=== PATIENT | male | born 1990 | race Caucasian/White ===

== ENCOUNTER 2021-06-14 20:47 | Emergency (ER) | payer OTHER, SELFPAY ==
--- NOTE | ~2021-06-14 | XR_ITS ---
EXAMINATION: XR chest 2V CLINICAL INFORMATION: Chest pain COMPARISON: No prior chest x-ray available in our system for comparison at the time of this dictation. TECHNIQUE: XR chest 2V Lungs and Ghada: Both lungs are clear. Pleura: Normal. Costophrenic angles are sharp. No pneumothorax. Heart: The heart is normal in size. Mediastinum: The mediastinum is within normal limits.. Bones: Skeletal structures included are normal for patient's age. XR/XR chest 2V IMPRESSION: Normal chest x-ray
[2021-06-14 21:41] VITALS: BP 147/97; PULSE 113; RESP 18; TEMP 37.2; O2SAT 96; BMI 24.0
--- NOTE | 2021-06-14 22:37 | ECG_ITS ---
Test Reason : CHEST PAIN Blood Pressure : / mmHG Vent. Rate : 087 BPM Atrial Rate : 087 BPM P-R Int : 140 ms QRS Dur : 086 ms QT Int : 362 ms P-R-T Axes : 074 033 063 degrees QTc Int : 435 ms Normal sinus rhythm RSR' or QR pattern in V1 suggests right ventricular conduction delay peaked t-waves in Anterior leads Borderline ECG No previous ECGs available Referred By: Kwabena Choi Electronically Signed By:SERGE STEPHENSON MD
--- NOTE | 2021-06-14 22:44 | ED_ITS ---
HPI - Chest Pain General Chief Complaint: Chest Pain Stated Complaint: Chest pain Time Seen by Provider: 06/14/21 22:35 Source: patient Limitations: no limitations History of Present Illness HPI narrative: This is a 30-year-old male whose mother had a heart attack that after Halloween, who notes that he has had fleeting chest pain only lasting second or 2 at a time off and on for months, but that more recently for the last 3 days or so the pain seems more frequent and lasting longer, and also seems to go around to left posterior chest more than it did before. Patient has not noted any pain per se with exertion. He did have some nausea last night associated with chest pain. Denies any shortness of breath. Pain is not worse with taking a deep breath except when the pain is more acute, then he does noted more when he takes a deep breath. He denies any pain or swelling in his legs. He denies any unusual sweats. He denies any history of hypertension, high cholesterol, diabetes. He does have coronary artery disease in his family, his mother, aunt, and grandfather on his mother's side. The patient is a former tobacco smoker. He does use occasional marijuana. Related Data Allergies Allergy/AdvReac Type Severity Reaction Status Date / Time No Known Allergies Allergy Verified 06/14/21 22:37 Review of Systems Review of Systems: Yes all other systems are reviewed and are negative Constitutional: Constitutional: Reports as per HPI and Denies fever(s) Eyes: Eyes: Reports as per HPI and Reports no additional eye complaints ENT: Reports system reviewed and no additional complaints, except as documented, Reports as per HPI, Denies nasal congestion, Denies nasal discharge and Denies sore throat Cardiovascular: Cardiovascular: Reports as per HPI, Reports chest pain and Denies dyspnea Respiratory: Respiratory: Reports as per HPI, Denies cough and Denies dyspnea Gastrointestinal: Gastrointestinal: Reports as per HPI, Denies abdominal pain, Denies diarrhea, Reports nausea and Denies vomiting Genitourinary: Genitourinary: Reports as per HPI, Denies hematuria, Denies dysuria and Denies urinary frequency Musculoskeletal: Musculoskeletal: Reports no additional musculoskeletal complaints and Denies numbness Integumentary/Breasts: Skin/Breast: Reports as per HPI and Denies rash Neurologic: Reports as per HPI, Denies focal weakness, Denies numbness and Denies Sensory deficit (Neuro) Psychiatric: Psychiatric: Reports no additional psychiatric complaints and Reports as per HPI Endocrine: Endocrine: Reports no additional endocrine complaints and Reports as per HPI Hematologic/Lymphatic: Hematologic/Lymphatic: Reports no additional hematologic/lymphatic complaints, Reports as per HPI and Reports other (No peripheral edema) [facility] Social History Social History Advance Directives: No Advance Directives Information Provided: No Physical Exam Vital Signs: Vital Signs: Last Vital Signs Temp 98.9 F 06/14/21 21:41 Pulse 91 06/15/21 00:16 Resp 18 06/15/21 00:16 BP 123/74 06/15/21 00:16 Pulse Ox 96 06/14/21 21:41 Body Mass Index 24.0 Const: General: cooperative, no acute distress and alert Orientation/consciousness: patient oriented x3 HENMT: Head: Yes normal to inspection Eyes: General: appearance normal, both eyes and all related structures Eyelids: Yes eyelids normal Conjunctivae: conjunctivae normal Pupils: Equal, round and reactive pupils present Neck: Neck: Yes normal visual inspection and Yes supple Chest: Chest palpation & inspection: normal inspection of the chest Resp: Effort & Inspection: normal respiratory effort Auscultation: clear to auscultation bilaterally Cardio: Rate: regular rate Rhythm: regular rhythm Heart sounds: S1 no rmal heart sound present, S2 normal heart sound present, no gallops, no murmurs and no rubs GI: Palpation (GI): Soft to palpation, nontender and Other GI palpation findings present (Non-distended) Auscultation: normal bowel sounds Skin: General skin exam: no rashes or lesions noted Neuro: General: patient oriented x3, no focal motor deficits and CN's II-XI intact bilaterally Cranial nerves: Yes Equal, round and reactive pupils present Cognition (Neuro): normal cognition Motor exam (neuro): 5/5 motor strength present throughout Sensory Exam: No Sensory deficit (Neuro) Extrem: General: Yes normal to inspection and Yes no pedal edema Psych: Appearance: grossly normal Affect: normal affect MDM - Chest Pain MDM Narrative Medical decision making narrative: Patient was sharp fleeting left-sided chest pain in his left lateral chest, present for some time, but more frequent recently and also with a new element of left upper back pain in the same area. The patient is concerned about his heart given his family history in his mother's recent heart attack. Patient is young and has no other significant risk factors. EKG normal. Troponin negative. Chest x-ray normal. No evidence of pneumothorax, pericarditis, pleural effusion, pneumonia. Doubt valvular disease. Patient does do a fair amount of lifting at work, possible musculoskeletal pain or costochondritis. Recommend ibuprofen, rest Lab Data Attestation: I reviewed the patient's lab results. Result diagrams: 06/14/21 23:00 06/14/21 23:00 Labs: Lab Results 06/14/21 06/14/21 06/14/21 Range/Units 23:00 23:00 23:00 WBC 7.5 (4.8-10.8) X10*3/uL RBC 5.21 (4.60-5.80) X10*6/uL Hgb 15.8 (14.0-18.0) g/dl Hct 47.4 (42.0-52.0) % MCV 91.0 (80.0-98.0) fL MCH 30.3 (27.0-33.0) pg MCHC 33.3 (31.0-36.0) g/dl RDW 11.7 (11.0-16.0) % Plt Count 228 (160-400) X10*3/uL MPV 10.1 (9.4-12.4) fL Immature Gran % (Auto) 0.1 (0.0-0.4) % Neut % (Auto) 52.0 (45-73) % Lymph % (Auto) 38.3 (20-40) % [place] % (Auto) 7.6 (2-11) % Eos % (Auto) 1.2 (0-4) % Baso % (Auto) 0.8 (0-2) % Lymph # (Auto) 2.9 (1.2-4.9) X10*3/uL [place] # (Auto) 0.6 (0.1-1.2) X10*3/uL Eos # (Auto) 0.1 (0.0-0.4) X10*3/uL Baso # (Auto) 0.1 (0.0-0.2) X10*3/uL Abs Immat Gran (auto) 0.01 (0.00-0.03) X10*3/uL Absolute Neuts (auto) 3.9 (2.0-8.3) x10*3/uL Absolute Nucleated RBC 0.000 (0.0-0.012) X10*3/uL Nucleated RBC % (auto) 0.0 (0.0-0.2) /100WBC D-Dimer High Sensitivty < 150 NG/ML Sodium 139 (135-145) mmol/L Potassium 4.5 (3.3-5.1) mmol/L Chloride 104 (96-108) mmol/L Carbon Dioxide 20 L (22-29) mmol/L Anion Gap 20 (12-20) BUN 10 (9-16) mg/dL Creatinine 0.88 (0.5-1.4) mg/dL Estim Creat Clear Calc 141.2 Estimated GFR > 60 Random Glucose 86 (60-115) mg/dL Calcium 8.8 (8.4-10.2) mg/dL Total Bilirubin 0.4 (0.0-1.0) mg/dL AST 36 (5-37) U/L ALT 31 (0-40) U/L Alkaline Phosphatase 68 (39-117) U/L Troponin I High Sens (<3.5-35.0) ng/L Total Protein 7.3 (6.5-8.0) g/dL Albumin 4.5 (3.5-5.0) g/dL 06/14/21 Range/Units 23:00 WBC (4.8-10.8) X10*3/uL RBC (4.60-5.80) X10*6/uL Hgb (14.0-18.0) g/dl Hct (42.0-52.0) % MCV (80.0-98.0) fL MCH (27.0-33.0) pg MCHC (31.0-36.0) g/dl RDW (11.0-16.0) % Plt Count (160-400) X10*3/uL MPV (9.4-12.4) fL Immature Gran % (Auto) (0.0-0.4) % Neut % (Auto) (45-73) % Lymph % (Auto) (20-40) % [place] % (Auto) (2-11) % Eos % (Auto) (0-4) % Baso % (Auto) (0-2) % Lymph # (Auto) (1.2-4.9) X10*3/uL [place] # (Auto) (0.1-1.2) X10*3/uL Eos # (Auto) (0.0-0.4) X10*3/uL Baso # (Auto) (0.0-0.2) X10*3/uL Abs Immat Gran (auto) (0.00-0.03) X10*3/uL Absolute Neuts (auto) (2.0-8.3) x10*3/uL Absolute Nucleated RBC (0.0-0.012) X10*3/uL Nucleated RBC % (auto) (0.0-0.2) /100WBC D-Dimer High Sensitivty NG/ML Sodium (135-145) mmol/L Potassium (3.3-5.1) mmol/L Chloride (96-108) mmol/L Carbon Dioxide (22-29) mmol/L Anion Gap (12-20) BUN (9-16) mg/dL Creatinine (0.5-1.4) mg/dL Estim Creat Clear Calc Estimated GFR Random Glucose (60-115) mg/dL Calcium (8.4-10.2) mg/dL Total Bilirubin (0.0-1.0) mg/dL AST (5-37) U/L ALT (0-40) U/L Alkaline Phosphatase (39-117) U/L Troponin I High Sens < 3.5 (<3.5-35.0) ng/L Total Protein (6.5-8.0) g/dL Albumin (3.5-5.0) g/dL Imaging Data Chest x-ray: Radiologist's impression: IMPRESSION: Normal chest x-ray ECG Data ECG #1: ECG interpretation date: 06/14/21 ECG interpretation time: 23:17 Interpretation: Sinus rhythm with a rate of 87. RSR pattern in lead V1 and V2, otherwise normal EKG. Discharge Plan Discharge Clinical Impression: Atypical chest pain Patient Disposition: Home, Self-Care Instructions: Noncardiac Chest Pain (ED) Additional Instructions: Use of appropriate 600 mg every 6 hours with food, while awake. Avoid heavy lifting or straining. Follow-up with the primary care physician. Return for an y new or worsened symptoms Referrals: Randy Evangelista MD [Physician] - 1 week Kaylen Marshall MD [Physician] - 1 week Interventions: ED Discharge Assessment Last Done: 06/15/21 00:20 Discharge Date/Time: 06/15/21 00:21
[2021-06-14 23:05] LABS: MANUAL DIFF FLAG NO
[2021-06-14 23:06] LABS: Basophils Absolute Auto 0.1 X10*3/uL (0.0-0.2); Basophils Percent Auto 0.8 % (0-2); Eosinophils Absolute Auto 0.1 X10*3/uL (0.0-0.4); Eosinophils Percent Auto 1.2 % (0-4); Hematocrit 47.4 % (42.0-52.0); Hemoglobin 15.8 g/dl (14.0-18.0); Imm Gran Abs Auto 0.01 X10*3/uL (0.00-0.03); Imm Gran Pct Auto 0.1 % (0.0-0.4); Lymphocytes Absolute Auto 2.9 X10*3/uL (1.2-4.9); Lymphocytes Percent Auto 38.3 % (20-40); Mean Corpuscular HGB Conc 33.3 g/dl (31.0-36.0); Mean Corpuscular Hemoglobin 30.3 pg (27.0-33.0); Mean Platelet Volume 10.1 fL (9.4-12.4); Monocytes Absolute Auto 0.6 X10*3/uL (0.1-1.2); Monocytes Percent Auto 7.6 % (2-11); Neutrophils Absolute Auto 3.9 x10*3/uL (2.0-8.3); Platelet Count 228 X10*3/uL (160-400); Red Blood Count 5.21 X10*6/uL (4.60-5.80); Red Cell Distribution Width 11.7 % (11.0-16.0); White Blood Count 7.5 X10*3/uL (4.8-10.8)
[2021-06-14 23:27] LABS: Alanine Aminotransferase 31 U/L (0-40); Albumin Level 4.5 g/dL (3.5-5.0); Alkaline Phosphatase 68 U/L (39-117); Anion Gap 20 (12-20); Aspartate Amino Transferase 36 U/L (5-37); Bilirubin Total 0.4 mg/dL (0.0-1.0); Blood Urea Nitrogen 10 mg/dL (9-16); Calcium 8.8 mg/dL (8.4-10.2); Carbon Dioxide 20 mmol/L (22-29); Chloride 104 mmol/L (96-108); Creatinine Clr Calc Pharmacy 141.2; Estimated Glomerular Filt Rate > 60; Glucose Random 86 mg/dL (60-115); Potassium 4.5 mmol/L (3.3-5.1); Sodium 139 mmol/L (135-145); Total Protein 7.3 g/dL (6.5-8.0)
[2021-06-14] MEDS: LORazepam 2 MG/ML VIAL 1 MG IVPUSH (23:29)
[2021-06-14 23:32] LABS: Troponin-I High Sensitivity < 3.5 ng/L (<3.5-35.0)
[2021-06-14 23:45] LABS: D Dimer High Sensitivity < 150 NG/ML
[2021-06-15 00:16] VITALS: BP 123/74; PULSE 91; RESP 18
== END 2021-06-15 00:21 | disposition home or self-care (01) ==
PROVIDERS: Emergency Provider Emergency Medicine
DX: R07.89 Other chest pain (principal); Z82.49 Family history of ischemic heart disease and other diseases of the circulatory system
CPT/HCPCS: 36415; 71046; 80053; 84484; 85025; 85379; 93005; 96374; 99284; J2060

== ENCOUNTER 2021-12-13 23:16 | Emergency (ER) | payer OTHER, SELFPAY ==
--- NOTE | ~2021-12-13 | XR_ITS ---
EXAMINATION: XR FOOT, RIGHT CLINICAL INFORMATION: Injury COMPARISON: None TECHNIQUE: AP, lateral, and oblique views of the right foot. FINDINGS: No fracture or cortical disruption. Appropriate alignment. Joint spaces are maintained. The soft tissues are unremarkable. No ankle joint effusion. XR/XR foot RT min 3V IMPRESSION: Normal right foot.
[2021-12-14 00:10] VITALS: BP 136/79; PULSE 120; RESP 20; TEMP 36.6; O2SAT 95; BMI 24.6
--- NOTE | 2021-12-14 02:10 | ED_ITS ---
HPI - Extremity Injury (Lower) General Chief Complaint: Extremity Injury, Lower Stated Complaint: broken foot? Source: patient Mode of arrival: wheelchair Limitations: no limitations History of Present Illness HPI Narrative: 31-year-old male presents with right foot pain after a trampoline accident. Patient stated that he was jumping on the trampoline in a foam pad, heard a pop and was unable to bear weight. He is having a difficult time with flexion and extension. It is not describe any other injuries from this incident. MD complaint: ankle injury and foot injury Onset (ago): hour(s) (Within the hour of arrival) Injury: Right: foot Type of Injury: unknown Place: other (Trampoline) Severity: moderate Relieving factors: nothing Exacerbating factors: weight bearing, movement and palpation Context: jumping Associated symptoms: snap/pop sensation and unable to bear weight Other symptoms: none Treatments prior to arrival: cold therapy Related Data Allergies Allergy/AdvReac Type Severity Reaction Status Date / Time No Known Allergies Allergy Verified 12/14/21 00:17 Review of Systems Review of Systems: Constitutional: No Fever, No Chills ENT/Mouth: No Ear Pain, No Hoarseness, No sore throat Eyes: No Eye Pain, No Swelling, No Redness, No Foreign Body Cardiovascular: No Chest Pain, No SOB Respiratory: No Cough, No Dyspnea Gastrointestinal: No Nausea, No Vomiting, No Diarrhea, No abdominal Pain Genitourinary: No Dysuria, No Hematuria Musculoskeletal: positive right ankle pain, No Myalgias, No Joint Swelling Skin: No Skin lacerations, No rash Neuro: No Weakness, No Numbness, No Paresthesias, No Loss of Consciousness, No Dizziness, No Headache Psych: No Anxiety/Panic, No Depression Heme/Lymph: no easy bruising, no Lymphadenopathy Endocrine: No Polyuria, No Polydipsia Yes all other systems are reviewed and are negative [facility] Past Medical History Attestation statement: The following information was validated with the patient. Source: old records reviewed Social History Social History Advance Directives: No Advance Directives Information Provided: Yes Physical Exam Vital Signs: Vital Signs: Last Vital Signs Temp 97.8 F 12/14/21 00:10 Pulse 120 H 12/14/21 00:10 Resp 20 12/14/21 00:10 BP 136/79 12/14/21 00:10 Pulse Ox 95 12/14/21 00:10 BMI result Body Mass Index 24.6 Appearance: Alert. Oriented X3. No acute distress. Eyes: Pupils equal, round and reactive to light. ENT: Pharynx normal. Neck: Normal inspection. Neck supple. CVS: Normal heart rate and rhythm. Pulses normal. Respiratory: No respiratory distress. Breath sounds normal. Abdomen: Soft and nontender. Skin: Skin warm and dry. Normal skin color. Normal skin turgor. Extremities: Brisk capillary refill in equal pulses bilaterally. Decreased active range of motion with flexion extension internal and external rotation. Neuro: No motor deficit. No sensory deficit. Cranial nerves 2-12 intact. Course Course Course Narrative: 31-year-old male presents with right foot pain and inability to bear weight after a trampoline injury. Patient was jumping on a trampoline add when he landed he felt a pop and was unable to bear weight. X-rays completed while patient was in the emergency department waiting room. Negative for fracture or dislocation. Patient's physical exam tender to palpation to the lateral malleolar process. No swelling or bruising noted. Patient has decreased active range of motion however does have full passive range of motion. Does have some tenderness. Strength 5/5. Equal pulses. Will place patient in a walker boot as injuries are consistent with possible tendon injury and sprain. Patient does understand that he must follow up with Orthopedics. Patient verbalized understanding of and agrees to plan of care to discharge home. Verbalized understanding of signs and symptoms indicating need for emergent intervention MDM - Extremity Injury (Lower) Differential Diagnosis Differential diagnosis: Likely ankle sprain and strain Medical Records Attestation: I reviewed the patient's medical records. Imaging Data Right foot x-ray: Attestation: I personally reviewed and interpreted this imaging study as follows: Radiologist's impression: EXAMINATION: XR FOOT, RIGHT CLINICAL INFORMATION: Injury? COMPARISON: None? TECHNIQUE: AP, lateral, and oblique views of the right foot. FINDINGS: No fracture or cortical disruption. Appropriate alignment. Joint spaces are maintained. The soft tissues are unremarkable. No ankle joint effusion.? XR/XR foot RT min 3V IMPRESSION: Normal right foot. Discharge Plan Discharge Clinical Impression: Ankle sprain and strain Patient Disposition: Home, Self-Care Instructions: Ankle Sprain (ED), Crutch Instructions (ED), R.I.C.E. Treatment (ED), Walking Boot (ED) Additional Instructions: You were evaluated for and ankle injury sustained from a trampoline jumping event. X-rays are negative for fracture however your physical exam is consi stent with a strain and a tendon injury. We placed you in a walker boot. You must follow-up with orthopedics for evaluation Please call and request an appointment. Take Tylenol 650 mg every 6 hours as needed and Motrin 600 mg every 6 hours as needed for pain management. Rest, ice and elevate. Thank you for choosing this emergency department for evaluation. Please follow-up with primary care physician as needed. Return to the emergency department for any new, concerning, or worsening symptoms. Referrals: Brunilda Alfredo PA-C [Physician [employer]] - (Right ankle sprain with suspected tendon injury) Stand Alone Forms: Work/School Release Interventions: ED Discharge Assessment Last Done: 12/14/21 03:00 Discharge Date/Time: 12/14/21 03:01
[2021-12-14] MEDS: Ibuprofen 600 MG TABLET PO (02:43)
== END 2021-12-14 03:01 | disposition home or self-care (01) ==
PROVIDERS: Emergency Provider Emergency Medicine
DX: S93.401A Sprain of unspecified ligament of right ankle, initial encounter (principal); S96.911A Strain of unspecified muscle and tendon at ankle and foot level, right foot, initial encounter; X58.XXXA Exposure to other specified factors, initial encounter; Y93.39 Activity, other involving climbing, rappelling and jumping off; Y92.89 Other specified places as the place of occurrence of the external cause; Y99.9 Unspecified external cause status
CPT/HCPCS: 73630; 99282; 99283

== ENCOUNTER 2021-12-25 10:13 | Outpatient (REF) | payer OTHER, SELFPAY ==
--- NOTE | ~2021-12-25 | XR_ITS ---
EXAMINATION: XR ANKLE, RIGHT CLINICAL INFORMATION: Pain. COMPARISON: Radiograph of the right foot dated from 12/14/2021. TECHNIQUE: AP, lateral, and mortise views of the right ankle. FINDINGS: No acute fractures or malalignment. The ankle mortise is maintained. Small well-corticated ossific fragment abutting the medial malleolus is likely a small enthesophyte or sequela of prior avulsion injury. No significant soft tissue abnormality. XR/XR ankle RT min 3V IMPRESSION: No significant abnormality. If symptoms persist, recommend correlation with a CT or MR.
== END 2021-12-25 10:14 | disposition home or self-care (01) ==
LOC: HO.HOSX 10:13
PROVIDERS: Visit Provider Physician Assistant
DX: M25.571 Pain in right ankle and joints of right foot (principal); S93.401A Sprain of unspecified ligament of right ankle, initial encounter; Y93.44 Activity, trampolining; Y92.39 Other specified sports and athletic area as the place of occurrence of the external cause; Y99.8 Other external cause status; F12.20 Cannabis dependence, uncomplicated
CPT/HCPCS: 73610; 99212

== ENCOUNTER 2022-01-23 08:20 | Outpatient (REF) | payer OTHER, SELFPAY | END 2022-01-23 08:21 | disposition home or self-care (01) | LOC: HO.HOSX 08:20 | PROVIDERS: Visit Provider Physician Assistant | DX: Z13.89 Encounter for screening for other disorder (principal) ==